=== PATIENT | female | born 1945 | race Caucasian/White ===

== ENCOUNTER 2022-06-26 16:35 | Inpatient (IN) | payer OTHER ==
[2022-06-26 18:39] LABS: BASO % 0.8 % (0-2.0); HEMATOCRIT 30.4 % (32.4-45.2); HEMOGLOBIN 10.2 GM/dL (10.7-15.3); LYMPH % 20.2 % (8-40); MCH 29.4 pg (25.7-33.7); MCHC 33.4 g/dl (32.0-36.0); MEAN PLT VOLUME 7.8 fl (7.5-11.1); MONO % 10.4 % (3.8-10.2); NEUT % 60.6 % (42.8-82.8); PLATELET COUNT 317 10^3/uL (134-434); RBC 3.46 M/mm3 (3.60-5.2); RDW 15.4 % (11.6-15.6); WHITE BLOOD COUNT 9.5 K/mm3 (4.0-10.0)
[2022-06-26] MEDS ORDERED: SODIUM CHLORIDE 0.9% 500 ML INFUS.BAG IV ONE (18:50)
[2022-06-26 19:02] LABS: POTASSIUM 4.8 mmol/L (3.5-5.1)
[2022-06-26 19:05] LABS: BLOOD UREA NITROGEN 30.5 mg/dL (7-18)
[2022-06-26 19:08] LABS: CREATININE 1.3 mg/dL (0.55-1.3); PHOSPHOROUS 3.6 mg/dL (2.5-4.9)
[2022-06-26 19:10] LABS: BILIRUBIN,TOTAL 0.3 mg/dL (0.2-1)
[2022-06-26 19:11] LABS: EPI CELLS 9 /uL (0-25.1); HYALINE CASTS 1 /uL (0-3.1); PH,URINE 6.5 (5.0-8.0); URINE APPEARANCE CLEAR; URINE BACTERIA 4 /uL (0-1359); URINE BILIRUBIN NEGATIVE (NEGATIVE); URINE COLOR YELLOW; URINE GLUCOSE (UA) NEGATIVE (NEGATIVE); URINE KETONE NEGATIVE (NEGATIVE); URINE LEUK ESTERASE NEGATIVE (NEGATIVE); URINE NITRITE NEGATIVE (NEGATIVE); URINE PROTEIN 4+ (NEGATIVE); URINE RBC 316 /uL (0-23.9); URINE UROBILINOGEN 0.2 mg/dL (0.2-1.0); URINE WBC 20 /uL (0-25.8)
[2022-06-26] MEDS ORDERED: ACETAMINOPHEN 1000 MG/100 ML BAG IVPB ONE (22:11)
[2022-06-27] MEDS ORDERED: SODIUM CHLORIDE 0.45% 1,000 ML IV SCH (00:45)
[2022-06-27] MEDS ORDERED: IPRATROPIUM BR 0.02% 0.5 MG/2.5 ML VIAL.NEB. NEB PRN (00:48)
[2022-06-27] MEDS ORDERED: ALBUTEROL SO4 HFA INHALER IH PRN (00:48)
[2022-06-27] MEDS ORDERED: ACETAMINOPHEN 325 MG TABLET (FP) PO PRN (00:48)
[2022-06-27] MEDS ORDERED: amLODIPine BESYLATE 5 MG TABLET (FP) PO ONE ×2 (00:51→08:00)
[2022-06-27] MEDS ORDERED: METOPROLOL TARTRATE 25 MG TABLET (FP) ONE (01:06)
[2022-06-27] MEDS ORDERED: ACETAMINOPHEN INJECTION 100 ML IVPB ONE (01:06)
[2022-06-27] MEDS ORDERED: MIRTAZAPINE 15 MG TABLET (FP) ONE (01:06)
[2022-06-27] MEDS ORDERED: amLODIPine BESYLATE 5 MG TABLET (FP) ONE (01:06)
[2022-06-27] MEDS: METOPROLOL TARTRATE 25 MG TABLET (FP) PO SCH ×3 (02:26→22:29)
[2022-06-27] MEDS: MIRTAZAPINE 15 MG TABLET (FP) PO SCH ×2 (02:26→22:29)
[2022-06-27 05:41] VITALS: BMI 24.4
[2022-06-27] MEDS: INSULIN SLIDING SCALE (NOVOLOG) 1 VIAL SQ SCH ×3 (06:40→16:22)
[2022-06-27 08:27] LABS: BASO % 1.1 % (0-2.0); EOS % 10.6 % (0-4.5); HEMATOCRIT 32.1 % (32.4-45.2); HEMOGLOBIN 10.9 GM/dL (10.7-15.3); MCH 29.8 pg (25.7-33.7); MCHC 33.9 g/dl (32.0-36.0); MEAN CELL VOLUME 87.8 fl (80-96); MEAN PLT VOLUME 7.5 fl (7.5-11.1); MONO % 12.6 % (3.8-10.2); NEUT % 56.7 % (42.8-82.8); PLATELET COUNT 292 10^3/uL (134-434); RBC 3.65 M/mm3 (3.60-5.2); RDW 15.2 % (11.6-15.6); WHITE BLOOD COUNT 7.9 K/mm3 (4.0-10.0)
[2022-06-27 08:44] LABS: POTASSIUM 4.2 mmol/L (3.5-5.1)
[2022-06-27 09:02] LABS: CALCIUM 8.2 mg/dL (8.5-10.1)
[2022-06-27 09:03] LABS: BLOOD UREA NITROGEN 22.5 mg/dL (7-18); MAGNESIUM 1.7 mg/dL (1.8-2.4); TOT PROT 5.8 g/dl (6.4-8.2)
[2022-06-27 09:04] LABS: BILIRUBIN,TOTAL 0.4 mg/dL (0.2-1)
[2022-06-27 09:05] LABS: PHOSPHOROUS 3.6 mg/dL (2.5-4.9)
[2022-06-27 09:06] LABS: CREATININE 1.2 mg/dL (0.55-1.3)
[2022-06-27] MEDS ORDERED: MAGNESIUM SULF 50% (8.12 MEQ/2 ML-1 GM VIAL) IVPB ONE (09:40)
[2022-06-27] MEDS: PANTOPRAZOLE SODIUM 40 MG VIAL IVPUSH SCH (10:10)
[2022-06-27] MEDS: APIXABAN 2.5 MG TABLET PO SCH ×2 (10:11→22:29)
[2022-06-27] MEDS: MEMANTINE HCL 10 MG TABLET (FP) PO SCH (10:11)
[2022-06-27] MEDS: LEFLUNOMIDE 10 MG TABLET PO SCH (10:11)
[2022-06-27] MEDS: BUDESONIDE/FORMETEROL FUMARATE 80/4.5 mcg INHALER IH SCH ×2 (10:12→22:30)
[2022-06-27] MEDS ORDERED: INSULIN (NOVOLOG) ASPART 100 UNITS/ML 10ML VIAL ONE (11:45)
[2022-06-27 12:32] LABS: EPI CELLS 4 /uL (0-25.1); HYALINE CASTS 0 /uL (0-3.1); PH,URINE 7.5 (5.0-8.0); URINE APPEARANCE CLEAR; URINE BACTERIA 8 /uL (0-1359); URINE BILIRUBIN NEGATIVE (NEGATIVE); URINE COLOR YELLOW; URINE GLUCOSE (UA) NEGATIVE (NEGATIVE); URINE KETONE NEGATIVE (NEGATIVE); URINE LEUK ESTERASE NEGATIVE (NEGATIVE); URINE NITRITE NEGATIVE (NEGATIVE); URINE PROTEIN 3+ (NEGATIVE); URINE UROBILINOGEN 0.2 mg/dL (0.2-1.0); URINE WBC 10 /uL (0-25.8)
[2022-06-27 12:47] LABS: URINE RBC 583.3 /uL (0-23.9)
[2022-06-27] MEDS ORDERED: LORazepam 0.5 MG TABLET PO PRN (18:06)
[2022-06-27] MEDS: ATORVASTATIN CA 10 MG TABLET (FP) PO SCH (22:29)
[2022-06-27] MEDS: MONTELUKAST NA 10 MG TABLET PO SCH (22:29)
[2022-06-27] MEDS: MELATONIN 1 MG TABLET PO SCH (22:29)
[2022-06-28] MEDS: INSULIN SLIDING SCALE (NOVOLOG) 1 VIAL SQ SCH ×3 (06:40→16:25)
[2022-06-28 08:12] LABS: BASO % 0.9 % (0-2.0); EOS % 6.7 % (0-4.5); HEMATOCRIT 31.2 % (32.4-45.2); HEMOGLOBIN 10.5 GM/dL (10.7-15.3); LYMPH % 10.9 % (8-40); MCH 29.5 pg (25.7-33.7); MCHC 33.7 g/dl (32.0-36.0); MEAN CELL VOLUME 87.5 fl (80-96); MEAN PLT VOLUME 7.5 fl (7.5-11.1); MONO % 8.8 % (3.8-10.2); NEUT % 72.7 % (42.8-82.8); PLATELET COUNT 309 10^3/uL (134-434); RBC 3.57 M/mm3 (3.60-5.2)
[2022-06-28 08:26] LABS: POTASSIUM 4.2 mmol/L (3.5-5.1)
[2022-06-28 08:30] LABS: CALCIUM 8.1 mg/dL (8.5-10.1)
[2022-06-28 08:31] LABS: BLOOD UREA NITROGEN 18.7 mg/dL (7-18); MAGNESIUM 2.1 mg/dL (1.8-2.4)
[2022-06-28 08:34] LABS: CREATININE 1.4 mg/dL (0.55-1.3)
[2022-06-28 08:35] LABS: TOT PROT 6.1 g/dl (6.4-8.2)
[2022-06-28 08:38] LABS: BILIRUBIN,TOTAL 0.4 mg/dL (0.2-1)
[2022-06-28] MEDS ORDERED: SODIUM CHLORIDE 0.45% 1,000 ML IV SCH (08:45)
[2022-06-28] MEDS: LEFLUNOMIDE 10 MG TABLET PO SCH (10:15)
[2022-06-28] MEDS: MEMANTINE HCL 10 MG TABLET (FP) PO SCH (10:15)
[2022-06-28] MEDS: amLODIPine BESYLATE 5 MG TABLET (FP) PO SCH (10:16)
[2022-06-28] MEDS: APIXABAN 2.5 MG TABLET PO SCH ×2 (10:16→22:29)
[2022-06-28] MEDS: METOPROLOL TARTRATE 25 MG TABLET (FP) PO SCH ×2 (10:16→22:29)
[2022-06-28] MEDS: PANTOPRAZOLE SODIUM 40 MG VIAL IVPUSH SCH (10:16)
[2022-06-28] MEDS: BUDESONIDE/FORMETEROL FUMARATE 80/4.5 mcg INHALER IH SCH ×2 (11:58→22:31)
[2022-06-28] MEDS ORDERED: INSULIN (NOVOLOG) ASPART 100 UNITS/ML 10ML VIAL ONE (12:09)
[2022-06-28] MEDS ORDERED: TRIMETHOBENZAMIDE HCL 200MG/2ML INJ IM ONE (19:31)
[2022-06-28] MEDS: MELATONIN 1 MG TABLET PO SCH (22:28)
[2022-06-28] MEDS: MONTELUKAST NA 10 MG TABLET PO SCH (22:29)
[2022-06-28] MEDS: MIRTAZAPINE 15 MG TABLET (FP) PO SCH (22:29)
[2022-06-28] MEDS: ATORVASTATIN CA 10 MG TABLET (FP) PO SCH (22:29)
[2022-06-28] MEDS: POLYETHYLENE GLYCOL (HEALTHYLAX) 3350 17 GM PACKET PO SCH (22:30)
[2022-06-29] MEDS: INSULIN SLIDING SCALE (NOVOLOG) 1 VIAL SQ SCH ×3 (06:15→17:09)
[2022-06-29 07:14] VITALS: RESP 18
[2022-06-29 09:33] LABS: BASO % 0.6 % (0-2.0); EOS % 5.7 % (0-4.5); HEMATOCRIT 28.4 % (32.4-45.2); LYMPH % 11.4 % (8-40); MCH 30.9 pg (25.7-33.7); MCHC 35.1 g/dl (32.0-36.0); MEAN CELL VOLUME 88.1 fl (80-96); MEAN PLT VOLUME 7.6 fl (7.5-11.1); MONO % 8.9 % (3.8-10.2); NEUT % 73.4 % (42.8-82.8); PLATELET COUNT 298 10^3/uL (134-434); RBC 3.23 M/mm3 (3.60-5.2); RDW 14.9 % (11.6-15.6); WHITE BLOOD COUNT 8.9 K/mm3 (4.0-10.0)
[2022-06-29 09:40] LABS: INR 1.16 (0.83-1.09); PROTHROMBIN TIME (PATIENT) 13.4 SEC (9.7-13.0)
[2022-06-29 09:53] LABS: POTASSIUM 4.1 mmol/L (3.5-5.1)
[2022-06-29 09:56] LABS: CALCIUM 7.7 mg/dL (8.5-10.1)
[2022-06-29 09:57] LABS: ALBUMIN 1.9 g/dl (3.4-5.0); BLOOD UREA NITROGEN 18.9 mg/dL (7-18); MAGNESIUM 2.1 mg/dL (1.8-2.4)
[2022-06-29 10:00] LABS: CREATININE 1.5 mg/dL (0.55-1.3)
[2022-06-29 10:01] LABS: BILIRUBIN,TOTAL 0.3 mg/dL (0.2-1); TOT PROT 5.5 g/dl (6.4-8.2)
[2022-06-29] MEDS ORDERED: SODIUM CHLORIDE 0.45% 1,000 ML IV SCH (10:15)
[2022-06-29] MEDS: POLYETHYLENE GLYCOL (HEALTHYLAX) 3350 17 GM PACKET PO SCH (10:52)
[2022-06-29] MEDS: amLODIPine BESYLATE 5 MG TABLET (FP) PO SCH (10:52)
[2022-06-29] MEDS: APIXABAN 2.5 MG TABLET PO SCH (10:52)
[2022-06-29] MEDS: METOPROLOL TARTRATE 25 MG TABLET (FP) PO SCH (10:52)
[2022-06-29] MEDS: MEMANTINE HCL 10 MG TABLET (FP) PO SCH (10:53)
[2022-06-29] MEDS: LEFLUNOMIDE 10 MG TABLET PO SCH (10:53)
[2022-06-29] MEDS: BUDESONIDE/FORMETEROL FUMARATE 80/4.5 mcg INHALER IH SCH (10:55)
[2022-06-29] MEDS: PANTOPRAZOLE SODIUM 40 MG VIAL IVPUSH SCH (10:55)
[2022-06-29 20:58] VITALS: BP 136/72; PULSE 64; TEMP 98.5
== END 2022-06-29 20:50 | DRG 392 ==
LOC: JER 16:35 → JERBED 22:20 → J7W 06-27 04:54 → OBSVTOIN 06-28 10:37
PROVIDERS: ADMIT Internal Medicine
DX: K29.90 Gastroduodenitis, unspecified, without bleeding (principal); A08.4 Viral intestinal infection, unspecified; F03.90 Unspecified dementia, unspecified severity, without behavioral disturbance, psychotic disturbance, mood disturbance, and anxiety; E11.9 Type 2 diabetes mellitus without complications; D64.9 Anemia, unspecified; I48.91 Unspecified atrial fibrillation; K59.00 Constipation, unspecified; K21.9 Gastro-esophageal reflux disease without esophagitis
CPT/HCPCS: 0241U-QW; 36415; 71045-TC-FY; 74176-TC; 74177-TC; 74181-TC; 76700-TC; 80053; 81003; 82272; 82570; 82728; 82962; 82977; 83036; 83516; 83540; 83550; 83605; 83690; 83735; 84080; 84100; 84155; 84156; 84165; 84300; 84484; 85025; 85045; 85610; 86038; 86160; 86705; 86803; 87045; 87046; 87086; 87209; 87340; 87517; 87798; 93005; 93010; 93306-TC; 99285-25; G0378